=== PATIENT | female | born 1985 | race Caucasian/White ===

== ENCOUNTER 2024-12-25 18:23 | Emergency (ER) | payer OTHER, SELFPAY ==
[2024-12-25 18:32] VITALS: BP 117/82; PULSE 100; RESP 18; TEMP 36.5; O2SAT 99; BMI 26.1
--- NOTE | 2024-12-25 18:51 | CRLHL7_ITS ---
For Patients: As a result of the Century Cures Act, medical imaging exams and procedure reports are released immediately into your electronic medical record. You may view this report before your referring provider. If you have questions, please contact your health care provider. INDICATION: Epigastric/left upper quadrant pain. Bilateral low back pain. History of pancreatitis. TECHNIQUE: CT abdomen and pelvis acquired with 81 cc Isovue 370 IV contrast. COMPARISON: None. FINDINGS: Lower chest: Scattered atelectasis. Liver: Unremarkable. Normal in size and attenuation. No suspicious masses. Gallbladder and bile ducts: Unremarkable. No stones or inflammation. No biliary dilatation. Pancreas: Prior distal pancreatectomy. No mass or inflammation. Spleen: Unremarkable. Normal in size. No masses. Adrenal glands: Unremarkable. No nodules. Kidneys: Unremarkable. No suspicious masses, stones, or hydronephrosis. GI tract: Unremarkable. Normal in caliber. No sign of mass or inflammation. Appendix not definitely seen Vasculature: Abdominal aorta is normal in caliber. Mesenteric arteries are patent. Lymph nodes: No lymphadenopathy. Peritoneum/Abdominal Wall: Postsurgical changes in the bilateral inguinal regions. Tiny fat containing umbilical hernia no sign of mass or infiltration. No free air or significant free fluid. Pelvis: Hysterectomy. Tiny right corpus luteal cyst. Mildly distended bladder. Bones: Unremarkable for age. IMPRESSION: No acute intra-abdominal/pelvic abnormality, including CT evidence of acute pancreatitis. It is important to note that low-grade pancreatitis can not be excluded by CT scan. Please note that all CT scans at this facility use dose modulation, iterative reconstruction, and/or weight-based dosing when appropriate to reduce radiation dose to as low as reasonably achievable. Dictated by Dale Gould MD @ 12/25/2024 8:10:19 PM (Electronically Signed)
--- NOTE | 2024-12-25 18:58 | ED_ITS ---
HPI - General Adult General Date Seen: 12/25/24 Chief complaint: Abdominal Pain Stated complaint: Abdominal pain Time Seen by Provider: 12/25/24 18:41 Source: patient Mode of arrival: ambulatory Limitations: no limitations History of Present Illness HPI narrative: Patient is a 39-year-old female with a history of pancreatitis, hysterectomy, oophorectomy presenting to the emergency department for abdominal pain. She states for the past week she has been having epigastric and left upper quadrant pain. She states this pain feels like her previous pancreatitis back in 2011. She states today she started having pain in her bilateral low back. States the low back pain is new. Has not been to eat or drink much over the past few days due to eating makes the pain worse it also makes her nauseated. Has been using Tylenol for pain with minimal improvement in her symptoms. 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 Also noticed she started to have watery diarrhea. Has not noticed any blood in her stools. Denies any fevers or chills. Denies lightheadedness, dizziness, chest pain, shortness of breath, dysuria, vaginal discharge or bleeding. No other concerns noted at this time. Related Data Home Medications ?Medication ?Instructions ?Recorded ?Confirmed No Known Home Medications 12/25/2412/07 Allergies Allergy/AdvReac Type Severity Reaction Status Date / Time venom-honey bee Allergy Severe Verified 12/25/24 20:00 morphine Allergy Unknown Verified 12/25/24 20:00 Review of Systems Status of ROS: Reports: 10 or more systems reviewed and unremarkable except as noted in History and below [facility] Social History Smoking Status: Never smoker How often do you have a drink containing alcohol: never AUDIT-C Alcohol total score: 0 Non-prescribed substance use: marijuana (any form) Non-prescribed substance use details: thc gummies for sleep Exam Narrative: Exam Narrative: Const: Well-nourished, Well-developed, in moderate distress Eyes: PERRL, no conjunctival injection, and symmetrical lids HENT: Atraumatic external nose and ears. Moist mucous membranes. Neck: Symmetric, trachea midline, No thyromegaly. CVS: RRR, No murmurs or gallops. Peripheral pulses 2+ and equal in all extremities RESP: Unlabored respiratory effort. Clear to auscultation bilaterally. GI: Epigastric and left upper quadrant tenderness with some guarding. MSK:Extremities w/o deformity, Normal Active ROM, bilateral low were back paraspinal tenderness. No midline tenderness Skin: Warm, Dry. No rashes or lesions. Neuro: Normal Muscle tone, No focal neurological deficits. Psych: Awake, Alert, & Oriented x3. Appropriate mood and affect. Const: Vital Signs, click to edit/add: Vital Signs - 24 hr 12/25/24 18:32 Temperature 97.7 F Pulse Rate [Pulse Oximeter] 100 Respiratory Rate 18 Blood Pressure [Ri ght Upper Arm] 117/82 Pulse Oximetry 99 Oxygen Delivery Me thod Room Air Course Vital Signs Vital signs: Initial Vital Signs Temperature 97.7 F 12/25/24 18:32 Temperature Source Temporal Artery Scan 12/25/24 18:32 Pulse Rate 100 12/25/24 18:32 Pulse Rhythm Regular 12/25/24 18:32 Respiratory Rate 18 12/25/24 18:32 Blood Pressure 117/82 12/25/24 18:32 Blood Pressure Mean 93 12/25/24 18:32 Blood Pressure Position Sitting 12/25/24 18:32 Pulse Oximetry 99 12/25/24 18:32 Oxygen Delivery Method Room Air 12/25/24 18:32 Vital Signs Temperature 97.7 F 12/25/24 18:32 Pulse Rate 100 12/25/24 18:32 Respiratory Rate 18 12/25/24 18:32 Blood Pressure 117/82 12/25/24 18:32 Pulse Oximetry 99 12/25/24 18:32 Oxygen Delivery Method Room Air 12/25/24 18:32 Temperature 97.7 F 12/25/24 18:32 Pulse Rate 100 12/25/24 18:32 Respiratory Rate 18 12/25/24 18:32 Blood Pressure 117/82 12/25/24 18:32 Pulse Oximetry 99 12/25/24 18:32 Oxygen Delivery Method Room Air 12/25/24 18:32 Medications Administered Medications: Discontinued Medications Generic Name Dose Route Start Last Admin Trade Name Freq PRN Reason Stop Dose Admin Hydromorphone HCl 0.5 mg 12/25/24 19:23 12/25/24 19:31 Hydromorphone 0.5 Mg/0.5 Ml Inj IVP 12/25/24 19:24 0.5 mg ONCE ONE Administration Lactated Ringer's 1,000 mls @ 1,000 mls/hr 12/25/24 18:50 12/25/24 19:21 Lactated Ringers 1000 Ml IV 12/25/24 19:49 1,000 mls/hr .Q1H ONE Administration Ondansetron HCl 4 mg 12/25/24 19:23 12/25/24 19:31 Ondansetron 2 Mg/Ml Inj IVP 12/25/24 19:24 4 mg ONCE ONE Administration Medical Decision Making MDM Narrative Medical decision making narrative: Patient is a 39-year-old female presenting to the emergency department for abdominal pain. This seems consistent with her previous pancreatitis. Will check a lipase. She is having diarrhea so seems less likely this is an SBO considering her multiple previous surgeries. CT scan will help evaluate for all this. No history of AFib and seems unlikely to be a splenic infarct. Location the pain makes it less likely to be appendicitis, diverticulitis, gallbladder liver disease. I offered her pain medication nausea medication but she declined at this time. Will give her some fluids for her dehydration. Also order CMP, CBC, magnesium. Patient did eventually 1 pain and nausea medicine and Zofran dilaudid were given. Lab work returned showing no acute concerning abnormalities. Lipase within normal limits. I do not think this is chronic pancreatitis as she only started having symptoms like this the past week and would still expect a lipase to be elevated. CT scan shows no acute concerning abnormalities. She is feeling better after the medication and do not know exactly what is causing her pain. There is a chance this could be chronic pancreatitis but I have nothing currently to support this diagnosis other than her history. I will discharge her home with oxycodone and Zofran fee instymeds. She does have follow-up with the primary care provider tomorrow. She is agreeable to this plan. Lab Data Labs: Lab Results 12/25/24 Range/Units 19:15 WBC 5.83 (4.50-11.00) K/uL RBC 3.92 L (4.00-5.20) m/uL Hgb 12.4 (12.0-16.0) gm/dL Hct 37.6 (33.0-51.0) % MCV 96 (80-100) fL MCH 32 (26-34) pg MCHC 33 (32-36) gm/dL RDW Coeff of Elisha 11.7 (11.5-15.5) % Plt Count 231 (140-440) K/uL Neut % (Auto) 43.1 (42.0-72.0) % Lymph % (Auto) 50.9 H (20-44) % [place] % (Auto) 5.7 (0.0-11.0) % Eos % (Auto) 0.0 (0.0-7.0) % Baso % (Auto) 0.3 (0.0-3.0) % Neut # (Auto) 2.51 (1.7-7.0) K/uL Lymph # (Auto) 3.00 H (0.90-2.90) K/uL Madison # (Auto) 0.30 (0.00-0.90) K/UL Eos # (Auto) 0.00 (0.00-0.50) K/uL Baso # (Auto) 0.02 (0.00-0.30) K/uL Abs Immat Gran (auto) 0.00 (0.00-0.30) K/uL Imm/Tot Granulo (auto) 0.0 % Sodium 140 (135-149) mmol/L Potassium 3.9 (3.6-5.1) mmol/L Chloride 104 (96-114) mmol/L Carbon Dioxide 28 (20-32) mmol/L Anion Gap 8 (7-15) mEq/L BUN 10 (5-24) mg/dL Creatinine 0.8 (0.5-1.5) mg/dL Estimated Creat Clear 90.90 Estimated GFR 95 ml/min Glucose 104 (60-115) mg/dL Calcium 9.9 (8.4-10.6) mg/dL Magnesium 2.0 (1.5-2.6) mg/dL Total Bilirubin 0.5 (0.1-1.5) mg/dL AST 24 (12-35) U/L ALT 15 (4-35) U/L Alkaline Phosphatase 40 (40-150) U/L Total Protein 8.4 H (6.0-8.3) g/dL Albumin 5.0 (3.3-5.0) g/dL Lipase 76 (23-300) U/L Imaging Data CT scan abdomen and pelvis: Attestation: I have reviewed the pertinent imaging results. Radiologist's impression: No acute intra-abdominal/pelvic abnormality, including CT evidence of acute pancreatitis. It is important to note that low-grade pancreatitis can not be excluded by CT scan. Please note that all CT scans at this facility use dose modulation, iterative reconstruction, and/or weight-based dosing when appropriate to reduce radiation dose to as low as reasonably achievable. Dictated by Dale Gould MD @ 12/25/2024 8:10:19 PM Discharge Plan Discharge Clinical Impression: Abdominal pain Qualifiers: Abdominal location: left upper quadrant Qualified Code(s): R10.12 - Left upper quadrant pain Patient Disposition: Home, Self-Care Condition: Improved Instructions: Abdominal Pain (ED) Additional Instructions: Take the oxycodone as needed for pain. Use the Zofran as needed for nausea. Make sure to follow-up with the primary care provider tomorrow. Return to emergency department for new or worsening symptoms Prescriptions: No Action No Known Home Medications Follow Up/Referrals: Mireille Angel MD [Primary Care Provider, Family Practice] Stand Alone Forms: Future Ad Labs Info Instructions
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
--- OUTSIDE RECORDS SUMMARY | 2024-12-25 19:07 | XMS_ITS | Clinical Summary ---
Author Organization [facility] Address [address] [place] [address] Care Team Providers Care Chocolate Packer Name Role Phone Elzbieta Sellers MD Primary Care Provider [phone] Source Comments You are receiving this document as you are listed as the primary care provider,follow-up provider, or the patient has been referred to you for consultation.This is in compliance with the Medicare and[place] Healthcaid EHR Incentive Program,which states Providers who transition their patient to another setting of careor provider of care or refers their patient to another provider of care shouldprovide summary care record for each transition of care or referral. [employer] ConsultingG[facility] Medical CenterRigel Pharmaceuticals Allergies Active Allergy Reactions Criticality Noted Date Comments Morphine Rash 12/28/2023 Medications promethazine (PHENERGAN) 25 MG tablet Take 1 Tablet (25 mg) by mouth every 6 hours as needed for Nausea. Active Active Problems No known active problems Social History Tobacco Use Types Packs/Day Years Used Date Smoking Tobacco: Never Smokeless Tobacco: Never Alcohol Use Standard Drinks/Week Comments No 0 (1 standard drink = 0.6 oz pur e alcohol) Comments No Sex and Gender Information Value Date Recorded Sex Assigned at Female 01/09/2024 7:44 AM CDT Legal Sex Female 5:06 PM CDT Gender Identity Female 01/09/2024 7:44 AM CDT Sexual Orientation Lesbian 01/09/2024 7: 44 AM CDT Last Filed Vital Signs Vital Sign Reading Time Taken Comments Blood Pressure 103/71 05/07/2013 5:34 PM CDT Pulse 73 05/07/2013 5:34 PM CDT Temperature 36.8 C (98.3 F) 05/07/2013 5:34 PM CDT Respiratory Rate - - Oxygen Saturation - - Inhaled Oxygen Concentration - - Weight 56.7 kg (125 lb) 05/07/2013 5:34 PM CDT Height 161.3 cm (5' 3.5) 05/07/2013 5:34 PM CDT Body Mass Index 21.8 05/07/2013 5:34 PM CDT Plan of Treatment Health Maintenance Due Date Last Done Comments Cervical Cancer Screening Due 1984 Hep C Screening (Preventive Services) 1984 Mammogram 1984 HIV Screening (Preventive Services) 2000 Adult Preventive Visit 2002 HepB Vaccine (1) 11/02/2003 DTaP/Tdap/Td Vaccine (2 - Tdap) 12/21/2023 12/20/2013 COVID-19 Vaccine (3 - season) 2024 09/25/2020, 08/28/2020 Influenza Vaccine (Season Ended) 2025 05/14/2020, 04/26/2018, 07/19/2017, Additional history exists Zoster/Shingles Vaccine (1 of 2) 2034 HPV Vaccine Aged Out No longer eligi ble based on patient's age to complete this topic HepA Vaccine Aged Out No longer eligi ble based on patient's age to complete this topic Hib Vaccine Aged Out No longer eligi ble based on patient's age to complete this topic IPV (Polio) Vaccine Aged Out No longe r eligible based on patient's age to complete this topic MCV4 Vaccine Aged Out No longer eligi ble based on patient's age to complete this topic Meningococcal B Vaccine Aged Out No l onger eligible based on patient's age to complete this topic Pneumococcal Vaccine Aged Out No long er eligible based on patient's age to complete this topic Insurance [employer] Care Teams Chocolate Packer Relationship Specialty Start Date End Date JeanetElzbieta MD PCP - General Urgent Care 05/07/13
[2024-12-25 19:19] LABS: Basophils Absolute Auto 0.02 K/uL (0.00-0.30); Basophils Percent Auto 0.3 % (0.0-3.0); Hematocrit 37.6 % (33.0-51.0); Hemoglobin* 12.4 gm/dL (12.0-16.0); Lymphocytes Percent Auto 50.9 % (20-44); Mean Corpuscular HGB Conc 33 gm/dL (32-36); Mean Corpuscular Hemoglobin 32 pg (26-34); Mean Corpuscular Volume 96 fL (80-100); Monocytes Percent Auto 5.7 % (0.0-11.0); Neutrophils Absolute Auto 2.51 K/uL (1.7-7.0); Neutrophils Percent Auto 43.1 % (42.0-72.0); Platelet Count* 231 K/uL (140-440); RDW Coefficient of Variation % 11.7 % (11.5-15.5); Red Blood Count 3.92 m/uL (4.00-5.20); Slide Review Reflex No; White Blood Count* 5.83 K/uL (4.50-11.00)
[2024-12-25] MEDS: LACTATED RINGERS 1000 ML 1,000 ML IV (19:21)
[2024-12-25 19:31] LABS: Chloride* 104 mmol/L (96-114); Potassium* 3.9 mmol/L (3.6-5.1); Sodium* 140 mmol/L (135-149)
[2024-12-25] MEDS: ONDANSETRON 2 MG/ML inj 4 MG IVP (19:31)
[2024-12-25] MEDS: HYDROmorphone 0.5 mg/0.5 ml inj IVP (19:31)
[2024-12-25 19:34] LABS: Alanine Aminotransferase* 15 U/L (4-35); Alkaline Phosphatase* 40 U/L (40-150); Anion Gap 8 mEq/L (7-15); Aspartate Amino Transferase* 24 U/L (12-35); Bilirubin Total* 0.5 mg/dL (0.1-1.5); Blood Urea Nitrogen* 10 mg/dL (5-24); Calcium* 9.9 mg/dL (8.4-10.6); Carbon Dioxide* 28 mmol/L (20-32); Creatinine* 0.8 mg/dL (0.5-1.5); Estimated Glomerular Filt Rate 95 ml/min; Glucose* 104 mg/dL (60-115); Lipase* 76 U/L (23-300); Total Protein* 8.4 g/dL (6.0-8.3)
[2024-12-25 20:36] VITALS: BP 101/71; PULSE 93; RESP 16; O2SAT 97
== END 2024-12-25 20:52 | disposition home or self-care (01) ==
PROVIDERS: Emergency Provider Student in an Organized Health Care Education/Training Program; PCP Family Medicine
DX: R10.12 Left upper quadrant pain (principal); R19.7 Diarrhea, unspecified; R11.0 Nausea
CPT/HCPCS: 36415; 74177; 80053; 83690; 83735; 85025; 96361; 96374; 96375; 99284; 99285; J1171; J2405; J7120; Q9967